=== PATIENT | male | born 1980 | race Caucasian/White ===

== ENCOUNTER → 2024-07-29 16:24 | Outpatient (BNVA) | payer OTHER, SELFPAY | PROVIDERS: Visit Provider Surgery | DX: K52.9 Noninfective gastroenteritis and colitis, unspecified (principal) | CPT/HCPCS: 82274; 83630; 87045; 87338; 87427; 87449 ==

== ENCOUNTER → 2024-07-31 09:01 | Outpatient (BNVA) | payer MEDICAID, SELFPAY | PROVIDERS: Referring Provider Surgery; Visit Provider Surgery | DX: K52.9 Noninfective gastroenteritis and colitis, unspecified (principal) | CPT/HCPCS: 87493 ==

== ENCOUNTER 2024-08-06 06:53 | Day surgery (SDC) | payer MEDICAID, SELFPAY ==
--- NOTE | 2024-08-06 06:10 | P.HPUD_ITS ---
Surgery/Procedure H&P Update DATE OF PROCEDURE: August 06, 2024 DATE H&P PERFORMED: 07/29/24 H&P UPDATE INFORMATION: I have reviewed H&P completed within last 30 days, I have examined patient prior to procedure, No changes to prior documentation, H&P is in [facility] EMR on date indicated and Risks and benefits of the procedure reviewed PLANNED PROCEDURE: Operation Date: 08/06/24 07:40 Proposed Procedures p EGD [id number] G0105 Z12.11 R10.9 R19.4(Not Applicable) - Elier Flores MD s Colonoscopy(Not Applicable) - Elier Flores MD
[2024-08-06 07:07] VITALS: BP 139/99; PULSE 86; RESP 16; TEMP 36.1; O2SAT 97; BMI 22.3
[2024-08-06] MEDS: sodium chloride 0.9% 1,000 ML 15 ML IV (07:15)
--- NOTE | 2024-08-06 07:24 | ANES.PREANE2 ---
Pre-Anesthetic Assessment Height/Weight: Height 1.8 m Weight 72.575 kg Temp Pulse Resp BP Pulse Ox O2 Del Method 97 F L 86 16 139/99 97 Room Air 08/06/24 07:07 08/06/24 07:07 08/06/24 07:07 08/06/24 07:07 08/06/24 07:07 08/06/24 07:07 Preop Diagnosis: Screening, Abd pain, change in bowel habits Operation Date: 08/06/24 07:40 Proposed Procedures p EGD [id number] G0105 Z12.11 R10.9 R19.4(Not Applicable) - Elier Flores MD s Colonoscopy(Not Applicable) - Elier Flores MD Was Clonidine taken within 24 hours: N/A Last intake: Intake Last Liquid Date 08/06/24 Last Liquid Time 00:00 Last Solid Date 08/04/24 Last Solid Time 18:00 Social Tobacco Exam alert, oriented x 3, clear to auscultation bilaterally and regular rate & rhythm Airway Submandibular: within normal limits Cervical ROM: within normal limits Mallampati: Class II Dentition: full History/ROS No significant history except as noted and No significant complaints Pulmonary Cough CV/HEM Hypertension None reported Hepatic None reported GI Gastroesophageal Reflux Disease Metabolic None reported Musc/skel None reported Neuropsych Anxiety Anesthetic Plan ASA status: 2 Anesthesia: Anesthesia Evaluation and MAC Risk of > 500 ml blood loss (7ml/kg in children): No Medications/Allergies Home Medications ?Medication ?Instructions ?Recorded ?Confirmed ?Last Taken ?Type amlodipine 10 mg tablet (Norvasc) 10 mg PO DAILY 08/06/24 08/06/24 Unknown History Allergies Allergy/AdvReac Type Severity Reaction Status Date / Time No Known Allergies Allergy Unverified 08/03/24 08:31 Current Medications Generic Name Dose Route Start Last Admin Trade Name Freq PRN Reason Stop Dose Admin Sodium Chloride 1,000 mls @ 15 mls/hr 08/06/24 06:51 08/06/24 07:15 Sodium Chloride 0.9% IV 08/07/24 06:50 15 mls/hr .Q24H PRN Administration COLONOSCOPY FLUIDS PFSH Anesthesia Family History (Updated 07/28/24 @ 14:50 by ASUNCION Gale) Father Hypertension Heart disease Social History (Updated 07/28/24 @ 14:50 by ASUNCION Gale) Smoking and tobacco/nicotine status: current every day tobacco/nicotine user cigarettes Alcohol intake: never
[2024-08-06 08:07] VITALS: BP 112/73; PULSE 67; RESP 16; TEMP 36.1; O2SAT 97
[2024-08-06 08:31] VITALS: BP 131/87; PULSE 62; RESP 18; O2SAT 96
[2024-08-06 08:43] VITALS: BP 122/61; PULSE 53; RESP 18; O2SAT 98
--- NOTE | 2024-08-06 09:15 | ANE.PACU2 ---
Inpatient post-anesthesia follow up: Airway intact: Yes Vital signs: Temperature 97 F Pulse Rate 53 Respiratory Rate 18 Blood Pressure 122/61 Pulse Oximetry 98 Oxygen Delivery Me thod Room Air Oxygen Flow Rate Fraction of Inspir ed Oxygen Hydration adequate: Yes Nausea and vomiting: No Pain level: 1 Mental status: Baseline
== END 2024-08-06 09:17 | disposition home or self-care (01) ==
PROVIDERS: PCP Nurse Practitioner; Visit Provider Surgery
PROC: 0DJ08ZZ Inspection of Upper Intestinal Tract, Via Natural or Artificial Opening Endoscopic (ICD-10-PCS; principal; 2024-08-06 07:40)
PROC: 0DJD8ZZ Inspection of Lower Intestinal Tract, Via Natural or Artificial Opening Endoscopic (ICD-10-PCS; CPT 45378; 2024-08-06 07:40)
DX: K29.30 Chronic superficial gastritis without bleeding (principal); D12.3 Benign neoplasm of transverse colon; K31.A11 Gastric intestinal metaplasia without dysplasia, involving the antrum; K29.00 Acute gastritis without bleeding; K21.9 Gastro-esophageal reflux disease without esophagitis; F17.210 Nicotine dependence, cigarettes, uncomplicated; I10 Essential (primary) hypertension; B96.81 Helicobacter pylori [H. pylori] as the cause of diseases classified elsewhere; Z79.899 Other long term (current) drug therapy
CPT/HCPCS: 43239; 45380; 88305; 88342; J2704; J7030; J9999